=== PATIENT | female | born 1950 | race Caucasian/White ===

== ENCOUNTER 2018-03-18 06:12 | Inpatient (IN) | payer MEDICARE, OTHER ==
[2018-03-17 12:52] LABS: BASOPHILS # (AUTO) 0.03 x10^3/uL (0-0.1); BASOPHILS % (AUTO) 0 % (0-1); EOSINOPHILS # (AUTO) 0.27 x10^3/uL (0-0.4); EOSINOPHILS % (AUTO) 2 % (1-7); LYMPHOCYTES # (AUTO) 2.87 x10^3/uL (1-3.4); LYMPHOCYTES % (AUTO) 21 % (22-44); MD NO; MEAN CORPUSCULAR HEMOGLOBIN 32.2 pg (27.0-34.8); MEAN CORPUSCULAR HGB CONC 34.3 g/dL (32.4-35.8); MEAN CORPUSCULAR VOLUME 93.9 fL (80-100); MEAN PLATELET VOLUME 8.1 fL (7.4-10.4); MONOCYTES % (AUTO) 7 % (2-9); NEUTROPHILS # (AUTO) 9.68 x10^3/uL (1.8-6.8); NEUTROPHILS % (AUTO) 70 % (42-75); PLATELET COUNT 320 x10^3/uL (130-400); RED BLOOD COUNT 4.81 x10^6/uL (3.82-5.3); RED CELL DISTRIBUTION WIDTH 13.5 % (9.6-15.2)
[2018-03-17 13:03] LABS: INTERNATIONAL NORMALIZED RATIO 0.91 (0.93-1.1)
[2018-03-17 13:05] LABS: ALANINE AMINOTRANSFERASE 24 U/L (12-78); ALBUMIN 3.6 g/dL (3.4-5.0); ANION GAP 12 mmol/L (5-15); CALCIUM 9.3 mg/dL (8.5-10.1); CHLORIDE 108 mmol/L (98-107); CREATININE 0.79 mg/dL (0.55-1.02)
[2018-03-17 13:07] LABS: ALKALINE PHOSPHATASE 95 U/L (45-117); BILIRUBIN,TOTAL 0.6 mg/dL (0.2-1.0); HCT (SEDRATE) 45.2 % (34.6-47.8); TOTAL PROTEIN 7.8 g/dL (6.4-8.2)
[2018-03-17 13:21] LABS: PROTHROMBIN TIME 9.5 Seconds (9.6-11.5)
[2018-03-17 13:40] LABS: MICROSCOPIC NOT IND
[2018-03-17 13:51] LABS: CULTURE INDICATED? NO
[~2018-03-18] VITALS: Ht 177.8 cm; Wt 134.4 kg
[~2018-03-18 06:12] MED LIST: ACET-1600 PO; ASCO100T5 PO; BETA10003 PO; CEFD300C37 PO; DOCU-131 PO; ESTR1TAB15 PO; FLUT16SP NAS; GUAI600T31 PO; LEVO750T26 PO; LOPE2CAP94 PO; LORA10TA3 PO; METH750T2 PO; MULT-750 PO; OXYB10TA6 PO; OXYC-307 PO; PRED20TA PO; SPIR25TA5 PO; VITA100T6 PO
[2018-03-18] MEDS ORDERED: EPINEPHRINE 1 MG/ML, 1ML ONE (06:57)
[2018-03-18] MEDS ORDERED: BUPIVACAINE/PF 0.5% ONE (06:57)
[2018-03-18] MEDS ORDERED: VANCOMYCIN 500 MG ONE (06:57)
[2018-03-18] MEDS ORDERED: LACTATED RINGERS 1,000 ML IV SCH (07:02)
[2018-03-18] MEDS ORDERED: MIDAZOLAM 1 MG/ML, 2ML ONE (07:45)
[2018-03-18] MEDS ORDERED: FENTANYL PF 100 MCG/2ML ONE ×3 (07:45→09:36)
[2018-03-18] MEDS ORDERED: KETAMINE 50 MG/ML, 10ML ONE (08:14)
[2018-03-18] MEDS ORDERED: MEPERIDINE/PF 25MG/0.5ML IVPush PRN (09:30)
[2018-03-18] MEDS ORDERED: OXYcodone 5 MG/5 ML ORAL.SOL UDC PO PRN (09:30)
[2018-03-18] MEDS ORDERED: ONDANSETRON 2MG/ML, 2ML IVPush PRN (09:30)
[2018-03-18] MEDS ORDERED: LABETALOL 5MG/ML, 20ML IV PRN (09:30)
[2018-03-18] MEDS ORDERED: MIDAZOLAM 1 MG/ML, 2ML IV PRN (09:30)
[2018-03-18] MEDS ORDERED: HYDROmorphone 2 MG/ML, 1ML ONE (09:35)
[2018-03-18] MEDS ORDERED: OXYcodone 5 MG/5 ML ORAL.SOL UDC ONE (09:36)
[2018-03-18] MEDS: FENTANYL PF 100 MCG/2ML IV PRN ×2 (09:39→09:49)
[2018-03-18] MEDS: HYDROmorphone 1 MG/ML, 1ML IV PRN ×3 (09:41→10:18)
[2018-03-18] MEDS ORDERED: KETOROLAC 30 MG/1 ML ONE (10:12)
[2018-03-18] MEDS ORDERED: KETOROLAC 30 MG/1 ML IVPush STA (10:12)
[2018-03-18] MEDS ORDERED: KETOROLAC 30 MG/1 ML IVPush ONE (10:30)
[2018-03-18] MEDS ORDERED: PHENYLEPHRINE 10 MG/ML ONE (11:08)
[2018-03-18] MEDS ORDERED: PROPOFOL 10 MG/ML, 20ML ONE (11:08)
[2018-03-18] MEDS ORDERED: SUCCINYLCHOLINE 20 MG/ML, 10ML ONE (11:08)
[2018-03-18] MEDS ORDERED: KETAMINE 10 MG/ML, 20ML ONE (11:08)
[2018-03-18] MEDS ORDERED: CEFAZOLIN 1,000 MG ONE (11:08)
[2018-03-18] MEDS ORDERED: morphine SULFATE 10 MG/ML, 1ML ONE (12:14)
[2018-03-18] MEDS ORDERED: morphine SULFATE 10 MG/ML, 1ML IVPush PRN (12:30)
[2018-03-18] MEDS ORDERED: ACETAMINOPHEN 500 MG TABLET PO PRN (15:30)
[2018-03-18] MEDS ORDERED: ONDANSETRON 2MG/ML, 2ML IV PRN (15:30)
[2018-03-18] MEDS ORDERED: morphine SULFATE 10 MG/ML, 1ML IV PRN (15:30)
[2018-03-18] MEDS ORDERED: KETOROLAC 30 MG/1 ML IV PRN (15:30)
[2018-03-18] MEDS ORDERED: PROMETHAZINE 25 MG/ML, 1ML IM PRN (15:30)
[2018-03-18] MEDS: HYDROcodone/APAP 10/325 MG TABLET PO PRN ×2 (17:46→23:10)
[2018-03-18 19:16] VITALS: BP 139/79
[2018-03-18] MEDS: SPIRONOLACTONE 25 MG TABLET PO SCH (21:00)
[2018-03-18] MEDS: METHOCARBAMOL 750 MG TABLET PO PRN (23:10)
[2018-03-19 00:30] VITALS: BP 124/72
[2018-03-19 04:29] VITALS: BP 125/80
[2018-03-19 07:40] VITALS: BP 114/73
[2018-03-19] MEDS: ESTRADIOL 1 MG TABLET PO SCH ×2 (07:58→08:01)
[2018-03-19] MEDS: HYDROcodone/APAP 10/325 MG TABLET PO PRN ×3 (07:58→13:08)
[2018-03-19] MEDS: SPIRONOLACTONE 25 MG TABLET PO SCH (07:58)
[2018-03-19] MEDS: METHOCARBAMOL 750 MG TABLET PO PRN (08:37)
[2018-03-19] MEDS ORDERED: MULTIVITAMIN 1 TABLET PO SCH (09:00)
[2018-03-19] MEDS ORDERED: DOCUSATE 100 MG CAPSULE PO SCH (09:00)
[2018-03-19] MEDS ORDERED: DITROPAN 10 MG PO SCH (09:00)
[2018-03-24] MEDS ORDERED: ALBU8.5H8 INH (10:47)
[2018-03-24] MEDS ORDERED: MOME13HF INH (10:47)
[2018-03-25] MEDS ORDERED: OXYC-307 PO (09:55)
[2018-03-25] MEDS ORDERED: POLY17PO5 PO (09:55)
== END 2018-03-19 15:25 | disposition home health service (06) | DRG 460 ==
LOC: OUT 06:12 → ORIP 11:58 → 4NOR 14:35 → DCLOUNGE 03-19 14:45
PROVIDERS: ADMIT Orthopaedic Surgery Orthopaedic Surgery of the Spine; ATTEND Orthopaedic Surgery Orthopaedic Surgery of the Spine
PROC: 4A11X4G Monitoring of Peripheral Nervous Electrical Activity, Intraoperative, External Approach (ICD-10-PCS; 2018-03-18)
PROC: 0SG807Z Fusion of Left Sacroiliac Joint with Autologous Tissue Substitute, Open Approach (ICD-10-PCS; 2018-03-18)
PROC: 0QB30ZZ Excision of Left Pelvic Bone, Open Approach (ICD-10-PCS; 2018-03-18)
PROC: 0SG804Z Fusion of Left Sacroiliac Joint with Internal Fixation Device, Open Approach (ICD-10-PCS; principal; 2018-03-18 08:00)
DX: M53.3 Sacrococcygeal disorders, not elsewhere classified (principal); M46.1 Sacroiliitis, not elsewhere classified; M19.90 Unspecified osteoarthritis, unspecified site
CPT/HCPCS: 36415; 71046; 72202; 76000; 80053; 81003; 85025; 85610; 85651; 85730; 93005; C1713; G0378; J0171; J0690; J1170; J1885; J2250; J2704; J3010; J3370; J3490; C1762; J0330; J2270; J2370; J7120

== ENCOUNTER 2021-01-27 17:55 | Emergency (ER) | payer MEDICARE, OTHER ==
[~2021-01-27] VITALS: Ht 177.8 cm; Wt 80.0 kg
[~2021-01-27 17:55] MED LIST changes: +ALBU8.5H8 INH; -FLUT16SP NAS; +FLUT16SP24 NAS; +LOPE-114 PO; -LOPE2CAP94 PO; +LORA-247 PO; -LORA10TA3 PO; +METH-640 PO; -METH750T2 PO; +MOME13HF INH; +MULT-482 PO; -MULT-750 PO; -OXYC-307 PO; +OXYC-501 PO; +POLY17PO5 PO
[2021-01-27] MEDS ORDERED: SODIUM CHLORIDE FLUSH 10ML SYR IVF ONE (18:00)
[2021-01-27] MEDS ORDERED: DIPHENHYDRAMINE 50 MG/ML, 1ML ONE (18:07)
[2021-01-27 18:20] LABS: BASOPHILS % (AUTO) 0 % (0-1); EOSINOPHILS % (AUTO) 2 % (1-7); LYMPHOCYTES % (AUTO) 19 % (22-44); MEAN CORPUSCULAR HEMOGLOBIN 30.6 pg (27.0-34.8); MEAN CORPUSCULAR HGB CONC 33.9 g/dL (32.4-35.8); MEAN PLATELET VOLUME 8.1 fL (7.4-10.4); MONOCYTES % (AUTO) 7 % (2-9); NEUTROPHILS % (AUTO) 72 % (42-75); PLATELET COUNT 258 x10^3/uL (130-400); RED BLOOD COUNT 4.96 x10^6/uL (3.82-5.3); RED CELL DISTRIBUTION WIDTH 13.8 % (9.6-15.2)
[2021-01-27 18:31] LABS: ALBUMIN 3.5 g/dL (3.4-5.0); ANION GAP 8 mmol/L (5-15); CALCIUM 9.5 mg/dL (8.5-10.1); CHLORIDE 107 mmol/L (98-107); CREATININE 0.58 mg/dL (0.55-1.02)
[2021-01-27 18:35] LABS: TROPONIN I < 0.015 ng/mL (0.000-0.045)
[2021-01-27] MEDS ORDERED: ALBUTEROL/IPRATROPIUM 2.5MG/0.5MG, 3 ML ONE (18:58)
[2021-01-27] MEDS ORDERED: ALBUTEROL/IPRATROPIUM 2.5MG/0.5MG, 3 ML NPPB ONE (19:00)
[2021-01-27 19:02] VITALS: BP 149/77
--- NOTE | 2021-01-27 19:38 | NUR ---
PATIENT REQUESTING TO GO HOME AT THIS TIME STATING THAT THE BED HERE IS UNCOMFORTABLE AND SHE HAS A BETTER ONE AT HOME. ERP AWARE.
--- NOTE | 2021-01-27 19:59 | NUR ---
Patient given discharge instructions and they have confirmed that they understand the instructions. Patient ambulatory with steady gait. NAD, all questions answered appropriately, denies additional needs at this time. No personal belongings left in room after discharge.
== END 2021-01-27 20:05 | disposition home or self-care (01) ==
LOC: ED 19:55
DX: J45.901 Unspecified asthma with (acute) exacerbation (principal); M79.7 Fibromyalgia
CPT/HCPCS: 36415; 71045; 80048; 82040; 83880; 84484; 85025; 93005; 94640; 99284